=== PATIENT | male | born 1985 | race Caucasian/White ===

== ENCOUNTER → 2018-02-23 09:57 | Outpatient (CLI) | payer BC, SELFPAY ==
--- NOTE | 2018-02-23 10:00 | ECHOD_ITS ---
Reason For Study: SYNCOPE/NEAR SYNCOPE Procedure This was a 2D Doppler, Color Flow transthoracic echocardiogram. Exam performed in department. Left Ventricle Normal size and thickness. The estimated ejection fraction is 65 %. Normal diastology for age. No regional wall motion abnormalities noted. Right Ventricle Normal size and thickness. Normal systolic function. Atria Normal left atrium. Normal right atrium. Normal atrial septum. Mitral Valve The mitral valve is structurally normal. No prolapse or stenosis seen. Tricuspid Valve Normal tricuspid valve. Trivial tricuspid valve insufficiency. Right ventricular systolic pressure estimated to be 25 mmHg. Aortic Valve Normal aortic valve. Trisinus/trileaflet aortic valve. Pulmonic Valve Normal pulmonic valve. Great Vessels Normal aortic root. Normal arch. Normal inferior vena cava. Inferior vena cava collapse with sniff. Pericardium/Pleural No pericardial effusion. MMode/2D Measurements & Calculations LVIDd: 4.8 cm IVSd: 1.1 cm Ao root diam: 3.0 cm LVIDs: 3.3 cm LVPWd: 0.94 cm RVDd: 2.8 cm FS: 31.3 % LAV(MOD-bp): 33.1 ml EDV(MOD-sp4): 161.9 ml SV(MOD-sp4): 98.5 ml LAV(MOD-bp) Indexed: 14.8 ml/m2 ESV(MOD-sp4): 63.4 ml LAV(MOD-sp2): 36.3 ml EF(MOD-sp4): 60.9 % LAV(MOD-sp4): 25.6 ml LA A4 area: 12.1 cm2 RA A4 area: 11.3 cm2 Doppler Measurements & Calculations MV E max baljinder: 86.4 cm/sec Lat Peak E' Baljinder: 11.8 cm/sec Med Peak E' Baljinder: 10.7 cm/sec MV A max baljinder: 73.3 cm/sec E/E' lat: 7.3 E/E' med: 8.0 MV E/A: 1.2 Ao V2 max: 133.8 cm/sec LV V1 max: 123.9 cm/sec PA V2 max: 108.9 cm/sec Ao max P.2 mmHg LV V1 max P.1 mmHg TR max baljinder: 220.6 cm/sec TR max P.0 mmHg Interpretation Summary The estimated ejection fraction is 65 %. Normal diastology for age. Trivial tricuspid valve insufficiency. Right ventricular systolic pressure estimated to be 25 mmHg. There is no comparison study available. Ordering Physician: Rl Contreras Referring Physician: Rl Contreras Performed By: Sharon Winters RDCS
== END ==
PROVIDERS: Visit Provider Internal Medicine Cardiovascular Disease
DX: R07.9 Chest pain, unspecified (principal); R55 Syncope and collapse; R00.1 Bradycardia, unspecified
CPT/HCPCS: 93306

== ENCOUNTER → 2018-04-29 10:29 | Outpatient (CLI) | payer BC, SELFPAY ==
--- NOTE | 2018-04-29 10:32 | STE_ITS ---
Reason For Study: CHEST PAIN Stress Results Protocol: Chris Protocol Maximum Predicted HR: 187 bpm Target HR: 159 bpm% Max imum Predicted HR: 93 % DurationHeart Rate Stage (mm:ss) (bpm) BP BASELINE 67 140/88 STAGE 1 3:00 12 1 160/102 STAGE 2 3:00 14 2 190/88 STAGE 3 3:00 17 3 200/94 RECOVERY 99 130/84 Stress Duration: 9:00 mm:ss Maximum Stress HR: 173 bpm Baseline Echocardiogram Findings The estimated ejection fraction is 65 %. Stress Echo Wall motion Data Resting WMIntermediate WMStress WM Resting Wall Motion Wall Motion Stress No regional wall motion No regional wall motion abnormalities noted. abnormalities noted. EKG Data Normal intervals are noted. The patient exercised according to the regular Chris protocol for a total duration of 9:01. The maximum heart rate attained was 176 beats per minute. This was 94% of maximum predicted heart rate. The patient exercised into stage 4 of the Chris protocol. During stress, there were no ST or T wave changes noted to suggest ischemia. No clinical angina was noted. Interpretation Summary The estimated ejection fraction is 65 %. Normal, adequate, treadmill echocardiogram. Negative for ischemia by EKG and echocardiographic criteria. No anginal symptoms noted. Rare PVCs noted. Hypertensive blood pressure response to exercise. Average exercise capacity for age. Final LVEF of 75%. No complications. Ordering Physician: lR Contreras Referring Physician: Rl Contreras Performed By: Carol Sena RDCS
== END ==
PROVIDERS: Visit Provider Internal Medicine Cardiovascular Disease
DX: R07.9 Chest pain, unspecified (principal); R55 Syncope and collapse; R00.1 Bradycardia, unspecified
CPT/HCPCS: 93017; 93350

== ENCOUNTER 2020-04-09 20:08 | Emergency (ER) | payer BC, SELFPAY ==
[2020-04-09 20:08] VITALS: BP 161/96; PULSE 57; RESP 18; TEMP 36.1; O2SAT 96; BMI 36.5
--- NOTE | 2020-04-09 21:24 | ED.RN ---
during waiting room rounds patient requested to have BP rechecked, 145/99. pt states he no longer wants to wait, he is scared of catching covid and leaves at this time. Pt instructed to return to ED anytime with concerns.
== END 2020-04-09 21:23 | disposition left against medical advice (07) ==
LOC: ED 21:26
PROVIDERS: Emergency Provider Emergency Medicine
DX: I10 Essential (primary) hypertension (principal); Z53.21 Procedure and treatment not carried out due to patient leaving prior to being seen by health care provider

== ENCOUNTER → 2023-10-05 | Outpatient (CLI) | payer OTHER, SELFPAY ==
[2023-10-05 17:36] LABS: Absolute Lymphocyte Count 1.36 X10^3/uL (0.83-4.51); Absolute Neutrophil Count 5.2 X10^3/uL (2.0-7.7); Basophil# 0.05 X10^3/uL; Basophil% 0.7 % (0-1); Eosinophil# 0.22 X10^3/uL; Hemoglobin 13.7 g/dL (13.0-16.5); Lymphocyte # 1.36 X10^3/ul (0.83-4.51); Lymphocyte % 18.6 % (19-41); Mean Corp Hgb Conc 32.6 g/dL (32-36); Mean Corpuscular Hgb 29.9 pg (27.0-32.0); Mean Corpuscular Volume 91.7 fL (80-94); Mean Platelet Vol. 9.4 fl (6.2-12.0); Monocyte# 0.49 X10^3/uL; Monocyte% 6.7 % (0-10); NRBC Flagged by Analyzer 0 % (0-5); Neutrophil # 5.16 X10^3/uL (2.7-7.7); Neutrophil % 70.5 % (47-70); Platelet Count 232 K/mm3 (150-450); RBC Distribution Width CV 13.3 % (11.6-14.6); RBC Distribution Width SD 44.6 fl (35.1-43.9); Red Blood Count 4.58 M/mm3 (4.6-6.2); White Blood Count 7.3 K/mm3 (4.4-11.0)
[2023-10-05 18:07] LABS: ALB/GLOB Ratio 1.2 RATIO (0.9-2.4); AST(SGOT) 18 U/L (15-37); Alanine Aminotransfer ALT/SGPT 47 U/L (16-61); Albumin, Serum 3.8 g/dL (3.2-5.0); Alkaline Phosphatase 43 U/L (45-117); Anion Gap 5 (5-15); BUN 14 mg/dL (7-18); BUN/Creat Ratio 19.3 RATIO (10-20); Calcium,Total 8.8 mg/dL (8.5-10.1); Chloride 105 mmol/L (98-107); Creatinine, Serum 0.72 mg/dL (0.70-1.30); EST Glomerular Filtration Rate 128 mL/min (>60); Est Glom Filt Rate - Afr Amer 155 mL/min (>60); Globulin 3.3 g/dL (2.2-4.2); Glucose 96 mg/dL (74-106); Potassium 3.8 mmol/L (3.5-5.1); Protein, Total 7.1 g/dL (6.4-8.2); Sodium Level 138 mmol/L (136-145)
== END | disposition home or self-care (01) ==
PROVIDERS: PCP Nurse Practitioner Family; Referring Provider Nurse Practitioner Family; Visit Provider Nurse Practitioner Family
DX: Z00.01 Encounter for general adult medical examination with abnormal findings (principal)
CPT/HCPCS: 36415; 80053; 85025